=== PATIENT | female | born 1980 | race Caucasian/White ===

== ENCOUNTER 2017-09-06 17:48 | Emergency (ER) | payer MEDICAID ==
[~2017-09-06] VITALS: Ht 154.9 cm; Wt 76.7 kg
[2017-09-06 18:00] VITALS: Ht 154.9 cm; Wt 76.7 kg
[2017-09-06 19:04] VITALS: BP 116/68
== END 2017-09-06 19:04 | disposition home or self-care (01) ==
LOC: ED 17:48
DX: S16.1XXA Strain of muscle, fascia and tendon at neck level, initial encounter (principal); S39.012A Strain of muscle, fascia and tendon of lower back, initial encounter; V89.2XXA Person injured in unspecified motor-vehicle accident, traffic, initial encounter; Y93.I9 Activity, other involving external motion; Y92.89 Other specified places as the place of occurrence of the external cause; Y99.8 Other external cause status

== ENCOUNTER 2017-09-14 11:55 | Emergency (ER) | payer MEDICAID ==
[~2017-09-14] VITALS: Ht 154.9 cm; Wt 77.1 kg
[2017-09-14 12:02] VITALS: Ht 154.9 cm; Wt 77.1 kg
[2017-09-14 13:35] VITALS: BP 130/76
== END 2017-09-14 13:35 | disposition home or self-care (01) ==
LOC: ED 11:55
DX: R10.13 Epigastric pain (principal); R11.2 Nausea with vomiting, unspecified; R19.7 Diarrhea, unspecified
CPT/HCPCS: J1885; Q0162

== ENCOUNTER 2019-05-17 14:44 | Emergency (ER) | payer MEDICAID ==
[~2019-05-17] VITALS: Ht 154.9 cm; Wt 78.0 kg
[2019-05-17 14:49] VITALS: Ht 154.9 cm; Wt 78.0 kg
[2019-05-17 16:52] VITALS: BP 145/80
== END 2019-05-17 16:52 | disposition home or self-care (01) ==
LOC: ED 14:44
DX: K62.89 Other specified diseases of anus and rectum (principal); K59.00 Constipation, unspecified; Z98.890 Other specified postprocedural states
CPT/HCPCS: J1885; Q0092